=== PATIENT | female | born 1955 | race Hispanic/Latino ===

== ENCOUNTER 2017-09-02 07:52 | Emergency (ER) | payer MEDICAID ==
[2017-09-02] MEDS ORDERED: LORAZEPAM 2 MG/ML 1 ML VIAL ONE (08:00)
[2017-09-02] MEDS ORDERED: PROPOFOL 1000 MG/100 ML 100 ML IV ONE (08:07)
[2017-09-02] MEDS ORDERED: INSULIN HUMULIN R 100 UNIT/ML 3ML ONE (08:16)
[2017-09-02 08:23] LABS: ABG BASE EXCESS -8.4 mmol/L (-2.0-3.0); ABG HCO3 16.4 mmol/L (21.0-28.0); ABG PCO2 32 mmHg (32-45)
[2017-09-02 08:25] LABS: BASOPHILS % (AUTO) 0.4 % (0.0-5.0); EOSINOPHILS % (AUTO) 0.5 % (0.0-8.0); HEMATOCRIT 34.2 % (36-48); LYMPHOCYTES % (AUTO) 38.9 % (21.0-51.0); MEAN CORPUSCULAR HEMOGLOBIN 31.4 pg (27.0-33.0); MEAN CORPUSCULAR VOLUME 92.5 fL (79-99); MONOCYTES % (AUTO) 6.4 % (3.0-13.0); NEUTROPHILS % (AUTO) 53.8 % (40.0-77.0); PLATELET COUNT (AUTO) 223 K/uL (130-400); RED CELL DISTRIBUTION WIDTH 13.6 % (11.0-15.5)
[2017-09-02] MEDS ORDERED: SODIUM BICARB 50MEQ 50ML VIAL ONE (08:25)
[2017-09-02 08:32] LABS: CREATININE 1.3 mg/dL (0.5-1.5); POTASSIUM 4.3 mmol/L (3.5-5.1)
[2017-09-02 08:38] LABS: ALBUMIN 3.2 g/dL (3.5-5.0); BILIRUBIN,TOTAL 0.6 mg/dL (0.2-1.0); TOTAL PROTEIN, SERUM 6.5 g/dL (6.0-8.3)
[2017-09-02 10:01] LABS: CREATINE KINASE MB 0.8 ng/mL (0.5-3.6); TROPONIN I 0.06 ng/mL (0.00-0.06)
[2017-09-02] MEDS ORDERED: CALCIUM CHLORIDE 100 MG/ML 10 ML SYG IVP ONE (12:00)
[2017-09-02] MEDS ORDERED: ATROPINE SULFATE 0.1 MG/ML 10 ML SYG IVP ONE (12:00)
[2017-09-02] MEDS ORDERED: EPINEPHRINE 0.1 MG/ML 10 ML SYG IVP ONE (12:00)
[2017-09-02] MEDS ORDERED: DEXTROSE 50%-WATER 50 ML DISP.SYRIN IV ONE (12:00)
[2017-09-02] MEDS ORDERED: SODIUM BICARB 8.4% 50ML SYRINGE IVP ONE (12:00)
== END 2017-09-02 12:41 | disposition expired ==
LOC: EDH 07:52
DX: R09.2 Respiratory arrest (principal); E87.5 Hyperkalemia; E11.9 Type 2 diabetes mellitus without complications; E78.5 Hyperlipidemia, unspecified; I10 Essential (primary) hypertension
CPT/HCPCS: 31500; 36415; 36600; 80053; 82330; 82435; 82550; 82553; 82803; 82947; 83605 ×2; 83874; 84132; 84295; 84484 ×2; 85018; 85025; 87040; 92950; 99285; J0171; J0461; J1815; J2060; J2704; J3490 ×3; J7070